=== PATIENT | male | born 1960 | race Caucasian/White ===

== ENCOUNTER 2024-01-22 12:16 | Emergency (ER) | payer MEDICAID ==
[~2024-01-22] VITALS: Ht 172.7 cm; Wt 95.3 kg
[2024-01-22 12:44] VITALS: BP 161/92; PULSE 70; RESP 20; TEMP 98.3; O2SAT 95
[2024-01-22 13:16] LABS: BASOPHILS % (AUTO) 0.4 % (0.0-2.0); EOSINOPHILS # (AUTO) 0.1 K/uL (0-0.4); EOSINOPHILS % (AUTO) 1.5 % (0.0-4.0); HEMOGLOBIN 16.6 g/dL (12.0-18.0); LYMPHOCYTES # (AUTO) 2.6 K/uL (2.0-11.5); LYMPHOCYTES % (AUTO) 32.8 % (20.5-51.1); MEAN CORPUSCULAR HEMOGLOBIN 33 pg (27-31); MEAN CORPUSCULAR HGB CONC 35 g/dL (33-37); MEAN CORPUSCULAR VOLUME 94.5 fL (80-94); MONOCYTES # (AUTO) 0.5 K/uL (0.8-1.0); MONOCYTES % (AUTO) 6.3 % (1.7-9.3); NEUTROPHILS # (AUTO) 4.7 K/uL (1.8-7.7); PLATELET COUNT (AUTO) 201 K/uL (140-450); RED BLOOD CELL COUNT(AUTO) 5.08 MIL/uL (4.20-6.10); RED CELL DISTRIBUTION WIDTH 13.4 % (11.6-13.7); WHITE BLOOD COUNT (AUTO) 7.9 K/uL (4.8-10.8)
[2024-01-22 13:20] VITALS: PULSE 72; RESP 28; O2SAT 93
[2024-01-22] MEDS: ALBUTEROL SULFATE/IPRATROPIU 3 ML SOL IH ONE (13:20)
[2024-01-22 13:41] LABS: ALBUMIN 3.6 g/dL (3.4-5.0); ANION GAP 11.3 (8-16); CARBON DIOXIDE 29.7 mmol/L (21-32); CREATININE 0.9 mg/dL (0.6-1.3); TOTAL PROTEIN, SERUM 7.4 g/dL (6.4-8.2)
[2024-01-22] MEDS ORDERED: ALBU0.0912 IH (14:30)
[2024-01-22] MEDS ORDERED: AZIT250T4 PO (14:30)
[2024-01-22] MEDS ORDERED: PRED20TA5 PO (14:30)
[2024-01-22] MEDS: predniSONE 20 MG TAB PO ONE (14:45)
[2024-01-22 14:51] VITALS: BP 140/68; PULSE 74; RESP 16; TEMP 98.3; O2SAT 97
== END 2024-01-22 14:52 | disposition home or self-care (01) ==
LOC: MED 12:16
DX: J18.1 Lobar pneumonia, unspecified organism (principal); J45.909 Unspecified asthma, uncomplicated; Z72.0 Tobacco use; Z71.6 Tobacco abuse counseling; Z79.2 Long term (current) use of antibiotics; Z79.899 Other long term (current) drug therapy
CPT/HCPCS: 36415; 71046; 80053; 83880; 84484; 85025; 93005; 94640; 99285; J7512